=== PATIENT | male | born 1965 | race Caucasian/White ===

== ENCOUNTER 2022-01-16 14:53 | Emergency (ER) | payer BC, OTHER ==
[2022-01-16] MEDS: Diphtheria,Pertussis(Acell),Tetanus Vaccine 0.5 ML Syringe IM ONE (15:17)
[2022-01-16] MEDS ORDERED: Lidocaine 1% 50 ML MDV INJECT ONE (15:30)
[2022-01-16] MEDS: Lidocaine 1% 5 ML VIAL INJECT ONE (15:30)
[2022-01-16 16:04] VITALS: BP 147/85; PULSE 78
[2022-01-16] MEDS: Lidocaine 1% 5 ML VIAL ONE (16:07)
== END 2022-01-16 15:50 | disposition home or self-care (01) ==
LOC: KA.ED 14:53
DX: S61.211A Laceration without foreign body of left index finger without damage to nail, initial encounter (principal); Z23 Encounter for immunization; W26.8XXA Contact with other sharp object(s), not elsewhere classified, initial encounter
CPT/HCPCS: 12002; 73140-F1; 90471; 90715; 99283-25

== ENCOUNTER 2023-04-15 11:17 | Emergency (ER) | payer BC ==
[2023-04-15 12:38] VITALS: BP 147/87; PULSE 60
== END 2023-04-15 12:01 | disposition home or self-care (01) ==
LOC: KA.ED 11:17
DX: S20.212A Contusion of left front wall of thorax, initial encounter (principal)
CPT/HCPCS: 71101-LT; 99283